=== PATIENT | male | born 1960 | race Native Hawaiian/Other Pacific Islander ===

== ENCOUNTER 2020-09-26 11:34 | Outpatient (CLI) | payer OTHER ==
[~2020-09-26 11:34] MED LIST: ASA LOW STR81 MG PO; MELO-13 PO; METO25TA4 PO
== END 2020-09-26 19:04 | disposition home or self-care (01) ==
LOC: RAD 11:34
PROVIDERS: ATTEND Nurse Practitioner Family
DX: N62 Hypertrophy of breast (principal)

== ENCOUNTER 2020-09-30 13:12 | Outpatient (CLI) | payer OTHER | END 2020-09-30 19:48 | disposition home or self-care (01) | LOC: MAMMO 13:12 | PROVIDERS: ATTEND Nurse Practitioner Family | DX: N62 Hypertrophy of breast (principal) ==

== ENCOUNTER 2022-01-14 11:03 | Outpatient (CLI) | payer BC | END 2022-01-14 18:53 | disposition home or self-care (01) | LOC: RAD 11:03 | PROVIDERS: ATTEND Internal Medicine | DX: R07.89 Other chest pain (principal) ==

== ENCOUNTER 2023-12-09 09:28 | Outpatient (CLI) | payer OTHER | END 2023-12-09 19:27 | disposition home or self-care (01) | LOC: RAD 09:28 | PROVIDERS: ATTEND Obstetrics & Gynecology Obstetrics | DX: M54.16 Radiculopathy, lumbar region (principal) ==